=== PATIENT | female | born 1955 | race Caucasian/White ===

== ENCOUNTER 2024-09-17 17:54 | Emergency (ER) | payer OTHER ==
[~2024-09-17] VITALS: Ht 170.2 cm; Wt 57.6 kg
[2024-09-17 18:12] VITALS: TEMP 98.2
--- NOTE | 2024-09-17 18:30 | ERN ---
ED Note History of Present Illness Stated Complaint: WOUND EVALUATION/SURGICAL SITE Chief Complaint: Other Problems Time Seen by MD: 17:55 Time Seen by Midlevel: 17:55 Dictation: The patient is a 68-year-old female with history of colon cancer and sacidosis who presents to the emergency department with complaints of fall onset 1 hour prior to arrival. Patient reports she was getting off a [place] when I she was not able to hold on to the handle on top of the roof causing her to fall on her left side, patient reports she landed on her left hand. Denies hitting her head, LOC, use of blood thinners, hip pain, patient denies any current pain. Reports abrasions to bilateral hours, bruising to left hand. Patient reports she was ambulatory after the fall. According to the patient she was at another hospital two days for evaluation of abdominal hernia which they told her she needed surgery and was scheduled for one today. Patient reports she wanted to seek a 2nd opinion although reports she is only came here for the fall and she denies any abdominal pain, nausea, vomiting, diarrhea, constipation, fevers. Allergies: Coded Allergies: No Known Drug Allergies (Unverified Allergy, Unknown, 09/17/24) Past Medical History Past Medical History: Cancer, Hypertension Additional Past Medical Hx: COLON CANCER, SARCIDOSIS Surgical History: Other RN Note Reviewed/Agreed w/PFSH: Yes Review of System Dictation Constitutional: Negative for fever,chills, and weight loss Eyes: Negative for injury, pain,redness, and discharge ENT: Negative for injury,pain or swelling Cardiovascular: Negative for chest pain, palpitations, and edema Respiratory: Negative for shortness of breath, cough, and wheezing, Abdomen/GI: Negative for abdominal pain, nausea, vomiting, diarrhea, and constipation Back: Negative for injury and pain : Negative for injury, bleeding and discharge MS/Extremity: Negative for injury and deformity, positive for left bruising Skin: Negative for rash, and discoloration positive for bilateral elbow abrasion Neuro: Negative for headache, weakness, numbness, tingling, and seizure Psych: Negative for suicide ideation, homicidal ideation, and hallucinations Initial Vital Sign VS Vital Signs Date Time Temp Pulse Resp B/P (MAP) Pulse Ox O2 Delivery O2 Flow Rate FiO2 09/17/24 17:55 98.4 65 14 172/49 96 Room Air 0 09/17/24 18:12 21 Physical Exam Dictation Vital Signs reviewed General Appearance: Alert, oriented x 3, no acute distress, well developed, nourished. Head and Face: non-traumatic. Eyes: PERRL, pink conjunctivas, eyelid no trauma, anterior chamber with arcus senilis. Ears: Pinnas intact and no signs of trauma or erythema ear canals clear and no discharge TM no erythema Nose: No discharge, no bleeding. Oropharynx: Mouth normal, tongue pink. pharynx clear,no erythema, tonsils no exudates, no abscesses noted, mucous membrane moist Neck: Supple, non-tender, no thyromegaly, no masses, no JVD, no bruits Breast:Deferred Chest:No tenderness, no crepitus, no paradoxical movement, no retractions Lungs:Clear, well-ventilated, symmetric, no rales, no wheezing, no rhonchi, no stridor, good breath sounds bilaterally Heart: Regular rate, regular rhythm, no murmur, no gallops Vascular: no peripheral edema, radial pulses 3+ bilaterally Abdomen: Soft, positive bowel sounds, nondistended, no guarding, nontender, no rebound, no masses no hepatomegaly, no splenomegaly, no Fairbanks's sign, no hernias. Stoma noted to right upper quadrant Rectal: Deferred Genital: Deferred Neurological: Normal speech, motor function intact, sensory function intact Musculoskeletal: Neck nontender, full range of motion, back nontender, full range of motion, Extremities: nontender, full range of motion , full range of motion on all extremities, nontender, no deformities Skin: Color pink, dry, no turgor, no rash, no lacerations, , no contusions. Bilateral elbow abrasions, minimal bleeding, Lymphatic: Deferred Results (Laboratory/Radiology) Laboratory/Radiology Laboratory Tests Test 09/17/24 18:24 White Blood Count 11.8 K/uL (4.8-10.8) H Red Blood Count 3.68 MIL/uL (4.00-5.50) L Hemoglobin 11.4 g/dL (12.0-16.0) L Hematocrit 35.2 % (36-48) L Mean Corpuscular Volume 95.7 fL (79-99) Mean Corpuscular Hemoglobin 31.0 pg (27.0-33.0) Mean Corpuscular Hemoglobin Concent 32.4 g/dL (32.0-36.0) Red Cell Distribution Width 15.9 % (11.0-15.5) H Platelet Count 238 K/uL (130-400) Mean Platelet Volume 9.5 fL (7.5-10.5) Immature Granulocyte % (Auto) 0.6 % (0-1) Neutrophils (%) (Auto) 80.4 % (40.0-77.0) H Lymphocytes (%) (Auto) 9.0 % (21.0-51.0) L Monocytes (%) (Auto) 9.2 % (3.0-13.0) Eosinophils (%) (Auto) 0.3 % (0.0-8.0) Basophils (%) (Auto) 0.5 % (0.0-5.0) Neutrophils # (Auto) 9.5 K/uL (1.8-7.7) H Lymphocytes # (Auto) 1.1 K/uL (1.0-4.8) Monocytes # (Auto) 1.1 K/uL (0.1-1.0) H Eosinophils # (Auto) 0.03 K/uL (0.00-0.70) Basophils # (Auto) 0.06 K/uL (0.00-0.20) Absolute Immature Granulocyte (auto 0.07 K/uL (0-1) Nucleated Red Blood Cells 0.0 % (0.0-0.19) White Cell Morphology Comment See comments Sodium Level 140 mmol/L (136-145) Potassium Level 3.7 mmol/L (3.5-5.1) Chloride Level 103 mmol/L (101-111) Carbon Dioxide Level 28 mmol/L (21-32) Blood Urea Nitrogen 10 mg/dL (7-18) Creatinine 0.8 mg/dL (0.5-1.0) Glomerular Filtration Rate Calc 80 mL/min (>90) Random Glucose 169 mg/dL (70-105) H Total Calcium 8.6 mg/dL (8.5-10.1) REASON: fall ORDERING PHYSICIAN: NIGHAT PERES PROCEDURE: PELVIS - PELVIS 1-2VWS PELVIS 1-2VWS HISTORY: Status post fall COMPARISON: None TECHNIQUE: Frontal projection of the pelvis was obtained. FINDINGS: There is no acute displaced fracture or dislocation. Bilateral hip joint space narrowing is seen. Degenerative changes are seen. IMPRESSION: 1. Findings as described above. REASON: fall ORDERING PHYSICIAN: NIGHAT PERES DATA ENGINEER PROCEDURE: HAND 3V LT - HAND 3+VWS LT HAND 3+VWS LT HISTORY: Status post fall COMPARISON: None TECHNIQUE: 4 images of left hand were obtained. FINDINGS: There is no acute displaced fracture or dislocation. Interphalangeal joint space narrowing and radiocarpal joint space narrowing are seen. Degenerative changes are seen. IMPRESSION: 1. Findings as described above. REASON: fall ORDERING PHYSICIAN: NIGHAT PERES DATA ENGINEER PROCEDURE: ELB3VW RT - ELBOW COMP 3+VWS RT ELBOW COMP 3+VWS RT HISTORY: Status post fall COMPARISON: None TECHNIQUE: 3 images of right elbow were obtained. FINDINGS: There is no acute displaced fracture or dislocation. Degenerative changes are seen. IMPRESSION: 1. Findings as described above. REASON: fall ORDERING PHYSICIAN: NIGHAT PEERS DATA ENGINEER PROCEDURE: ELB3VW LT - ELBOW COMP 3+VWS LT ELBOW COMP 3+VWS LT HISTORY: Status post fall COMPARISON: None TECHNIQUE: 3 images of left elbow were obtained. FINDINGS: There is no acute displaced fracture or dislocation. Degenerative changes are seen. IMPRESSION: 1. Findings as described above. REASON: fall ORDERING PHYSICIAN: NIGHAT PERES DATA ENGINEER PROCEDURE: CXR1VW - CHEST 1VW CHEST 1VW HISTORY: Status post fall COMPARISON: None FINDINGS: A frontal projection of the chest was obtained. There are bilateral pulmonary infiltrates suggestive of pulmonary vascular congestion with possible superimposed pneumonitis. There may be right pleural effusion. The heart is borderline enlarged. Degenerative changes are seen. No evidence of aortic calcification is seen. IMPRESSION: 1. Bilateral pulmonary infiltrates are seen suggestive of pulmonary vascular congestion with possible superimposed pneumonitis. Labs Reviewed?: Yes ED Course ED Course Orders Procedure Category Date Status Time Cbc With Differential LAB 09/17/24 Complete 18:11 Urinalysis Profile LAB 09/17/24 Logged 18:11 Chest 1vw RAD 09/17/24 Resulted 18:11 Basic Metabolic Panel LAB 09/17/24 Complete 18:11 Wound Care (Er) CPOE 09/17/24 Transmitted 18:11 Elbow Comp 3+Vws Lt RAD 09/17/24 Resulted 18:11 Elbow Comp 3+Vws Rt RAD 09/17/24 Resulted 18:11 Hand 3+Vws Lt RAD 09/17/24 Resulted 18:11 Pelvis 1-2vws RAD 09/17/24 Resulted 18:11 Vital Signs Date Time Temp Pulse Resp B/P (MAP) Pulse Ox O2 Delivery O2 Flow Rate FiO2 09/17/24 19:22 69 18 170/59 98 Room Air* 0 09/17/24 18:12 98.2 63 18 174/59 96 Room Air* 0 09/17/24 17:55 98.4 65 14 172/49 96 Room Air 0 Medical Decision Making MDM [facility] The patient is a 68-year-old female with history of colon cancer and sarcoidosis who presents to the emergency department with complaints of fall onset 1 hour prior to arrival. Patient reports she was getting off a [place] when I she was not able to hold on to the handle on top of the roof causing her to fall on her left side, patient reports she landed on her left hand. Denies hitting her head, LOC, use of blood thinners, hip pain, patient denies any current pain. Reports abrasions to bilateral hours, bruising to left hand. Patient reports she was ambulatory after the fall. According to the patient she was at another hospital two days for evaluation of abdominal hernia which they told her she needed surgery and was scheduled for one today. Patient reports she wanted to seek a 2nd opinion although reports she is only came here for the fall and she denies any abdominal pain, nausea, vomiting, diarrhea, constipation, fevers. CBC showed mild leukocytosis, mild normocytic anemia, chemistry showed no electrolyte imbalance. Patient with a an abnormal x-ray possible right pleural effusion. Patient reports it is all related to her sarcoidosis and she is following up with a refrigerating technician. Informed to the patient that I would like to keep her in the hospital with the patient at this time does not want to stay and would like to leave AMA. Risks and benefits discussed with the patient who verbalizes understanding of risks of leaving AMA. Patient also refused CT abdomen DX & DISP Disposition: AMA Departure Condition: Stable NIGHAT PERES DATA ENGINEER Sep 17, 2024 18:30
[2024-09-17 18:32] LABS: BASOPHILS # (AUTO) 0.06 K/uL (0.00-0.20); BASOPHILS % (AUTO) 0.5 % (0.0-5.0); EOSINOPHILS # (AUTO) 0.03 K/uL (0.00-0.70); EOSINOPHILS % (AUTO) 0.3 % (0.0-8.0); HEMATOCRIT 35.2 % (36-48); IMMATURE GRANULOCYTE ABSOLUTE 0.07 K/uL (0-1); LYMPHOCYTES # (AUTO) 1.1 K/uL (1.0-4.8); MEAN CORPUSCULAR HGB CONC 32.4 g/dL (32.0-36.0); MEAN CORPUSCULAR VOLUME 95.7 fL (79-99); MONOCYTES # (AUTO) 1.1 K/uL (0.1-1.0); MONOCYTES % (AUTO) 9.2 % (3.0-13.0); NEUTROPHILS # (AUTO) 9.5 K/uL (1.8-7.7); NEUTROPHILS % (AUTO) 80.4 % (40.0-77.0); PLATELET COUNT (AUTO) 238 K/uL (130-400); RED BLOOD CELL COUNT(AUTO) 3.68 MIL/uL (4.00-5.50); RED CELL DISTRIBUTION WIDTH 15.9 % (11.0-15.5); WHITE BLOOD COUNT (AUTO) 11.8 K/uL (4.8-10.8)
[2024-09-17 18:42] LABS: CREATININE 0.8 mg/dL (0.5-1.0); POTASSIUM 3.7 mmol/L (3.5-5.1)
--- NOTE | 2024-09-17 18:57 | HMCIMG ---
ELBOW COMP 3+VWS LT HISTORY: Status post fall COMPARISON: None TECHNIQUE: 3 images of left elbow were obtained. FINDINGS: There is no acute displaced fracture or dislocation. Degenerative changes are seen. IMPRESSION: 1. Findings as described above.
--- NOTE | 2024-09-17 19:01 | NUR ---
pt refusing IV and CT abdomen/pelvis w/contrast
--- NOTE | 2024-09-17 19:02 | HMCIMG ---
HAND 3+VWS LT HISTORY: Status post fall COMPARISON: None TECHNIQUE: 4 images of left hand were obtained. FINDINGS: There is no acute displaced fracture or dislocation. Interphalangeal joint space narrowing and radiocarpal joint space narrowing are seen. Degenerative changes are seen. IMPRESSION: 1. Findings as described above.
--- NOTE | 2024-09-17 19:07 | HMCIMG ---
PELVIS 1-2VWS HISTORY: Status post fall COMPARISON: None TECHNIQUE: Frontal projection of the pelvis was obtained. FINDINGS: There is no acute displaced fracture or dislocation. Bilateral hip joint space narrowing is seen. Degenerative changes are seen. IMPRESSION: 1. Findings as described above.
--- NOTE | 2024-09-17 19:11 | HMCIMG ---
ELBOW COMP 3+VWS RT HISTORY: Status post fall COMPARISON: None TECHNIQUE: 3 images of right elbow were obtained. FINDINGS: There is no acute displaced fracture or dislocation. Degenerative changes are seen. IMPRESSION: 1. Findings as described above.
--- NOTE | 2024-09-17 19:12 | HMCIMG ---
CHEST 1VW HISTORY: Status post fall COMPARISON: None FINDINGS: A frontal projection of the chest was obtained. There are bilateral pulmonary infiltrates suggestive of pulmonary vascular congestion with possible superimposed pneumonitis. There may be right pleural effusion. The heart is borderline enlarged. Degenerative changes are seen. No evidence of aortic calcification is seen. IMPRESSION: 1. Bilateral pulmonary infiltrates are seen suggestive of pulmonary vascular congestion with possible superimposed pneumonitis.
[2024-09-17 19:22] VITALS: BP 170/59; PULSE 69; RESP 18; O2SAT 98
--- NOTE | 2024-09-17 19:24 | NUR ---
PATIENT STATES NO PAIN, JUST HAD A SMALL ABRASION TO RIGHT ELBOW WITH NO SWELLING.
--- NOTE | 2024-09-17 19:30 | NUR ---
PATIENT SIGNED REFUSAL OF CT SCAN AT THIS TIME.
== END 2024-09-17 20:18 | disposition left against medical advice (07) ==
LOC: EDH 17:54
DX: S50.312A Abrasion of left elbow, initial encounter (principal); S50.311A Abrasion of right elbow, initial encounter; I10 Essential (primary) hypertension; Z85.038 Personal history of other malignant neoplasm of large intestine; W18.39XA Other fall on same level, initial encounter; Y93.89 Activity, other specified; Y92.89 Other specified places as the place of occurrence of the external cause; Y99.8 Other external cause status
CPT/HCPCS: 36415; 71045; 72170; 73080; 73130; 80048; 85025; 99284

== ENCOUNTER → 2025-04-11 | Outpatient (CLI) | payer OTHER ==
[~2025-04-11] MED LIST: IOHEXOL-350 75 ML VIAL IV ONE
--- NOTE | 2025-04-12 05:54 | HMCIMG ---
EXAM: CT Abdomen and Pelvis with IV contrast. CLINICAL HISTORY: Unspecified abdominal hernia without obstruction or gangrene. TECHNIQUE: Thin collimated axial CT images of the abdomen and pelvis were obtained with sagittal and coronal reformatted images also submitted. CT scan done according to ALARA (As Low As Reasonably Achievable). Intravenous contrast was administered. COMPARISON: CT abdomen and pelvis with contrast dated 09/18/24. FINDINGS: Unremarkable visualized lung parenchyma. The liver is mildly enlarged in size, measuring about 16.2 cm in the craniocaudal dimension, and shows mild fatty changes. No focal lesion or intrahepatic biliary radical dilatation. Bilateral kidneys are normal in size, shape and post-contrast enhancement. There are multiple Bosniak class I left renal cortical cysts, the largest measuring 1.8 cm at the upper pole. Tiny Bosniak class I right renal cyst. There is no focal abnormality appreciated within the gallbladder, pancreas, spleen, or adrenals. There is a supraumbilical midline ventral wall hernia (7.5 cm abdominal wall defect) with mesenteric fat, small and large bowel as contents, without obstruction or incarceration. Status post right hemicolectomy with patent ileocolic anastomosis. The visualized bowel loops are normal in caliber without obstruction or ileus. The appendix is not visualized. Scattered uncomplicated colonic diverticulosis. There is no abnormality within the urinary bladder. Unremarkable reproductive organs. Abdominal and pelvic vessels are patent. Moderate calcific atheromatous changes in the abdominal aorta. No lymphadenopathy. No free fluid. There is no acute osseous abnormality. Mild degenerative osseous changes. Age indeterminate wedge compression fracture of the L1 vertebral body with 30%-40% height loss. Grade I degenerative retrolisthesis of L2 over L3 and L3 over L4. IMPRESSIONS: 1. No acute process in the abdomen and pelvis. 2. Mild hepatomegaly and fatty liver. 3. Bilateral Bosniak class I renal cortical cysts, more pronounced in the left kidney. 4. Supraumbilical midline ventral wall hernia (7.5 cm abdominal wall defect) with mesenteric fat, small bowel and large bowel as contents, without obstruction or incarceration. 5. Status post-right hemicolectomy with patent ileocolic anastomosis. Scattered uncomplicated colonic diverticulosis. 6. Age indeterminate wedge compression fracture of the L1 vertebral body with 30%-40% height loss. Grade I degenerative retrolisthesis of L2 over L3 and L3 over L4. Compared with the prior CT abdomen and pelvis with contrast dated 09/18/24, there is an interval resolution of bilateral pleural effusions, an interval increase in the abdominal wall defect and herniation of the contents, and resolution of the surrounding postoperative inflammatory changes. The remaining findings are stable. /[place]
== END | disposition home or self-care (01) ==
LOC: RAH 07:13
PROVIDERS: ATTEND Surgery
DX: K76.0 Fatty (change of) liver, not elsewhere classified (principal); K57.30 Diverticulosis of large intestine without perforation or abscess without bleeding; K46.9 Unspecified abdominal hernia without obstruction or gangrene; M43.16 Spondylolisthesis, lumbar region; M48.56XA Collapsed vertebra, not elsewhere classified, lumbar region, initial encounter for fracture; N28.1 Cyst of kidney, acquired; R16.0 Hepatomegaly, not elsewhere classified; K43.9 Ventral hernia without obstruction or gangrene; I70.0 Atherosclerosis of aorta
CPT/HCPCS: 74177; Q9967